=== PATIENT | female | born 1970 | race Caucasian/White ===

== ENCOUNTER 2019-08-28 07:34 | Emergency (ER) | payer OTHER ==
[~2019-08-28] VITALS: Ht 160 cm; Wt 40.0 kg
[2019-08-28 08:30] LABS: Hematocrit 42.5 % (33.0-51.0); Hemoglobin 12.6 g/dL (11.5-16.0); Mean Corpuscular HGB 33.3 pg (26.0-34.0); Mean Corpuscular HGB Conc 29.6 g/dL (31.5-36.5); Mean Corpuscular Volume 112 fL (80-100); Mean Platelet Volume 12.6 fL (9.1-12.4); NRBC ABSOLUTE 0.05 K/mm3 (0.00-0.02); NRBC Auto 0.3 /100 WBC (0.0-0.2); Platelet Count 196 K/mm3 (150-400); RDW Coefficient Variation 13.8 % (11.7-14.2); RDW Standard Deviation 57.8 fL (35.1-46.3); Red Blood Cell Count 3.78 M/mm3 (3.80-5.20); White Blood Cell Count 16.35 K/mm3 (4.00-11.30)
[2019-08-28 08:45] LABS: Alanine Aminotransfer (ALT/SGP 129 U/L (12-78); Albumin, Blood 1.9 g/dL (3.4-5.0); Albumin/Globulin Ratio 0.7 (0.8-1.8); Alk Phos 51 U/L (50-136); Anion Gap 17 mmol/L (6-16); Aspartate Aminotrans (AST/SGOT 114 U/L (12-37); Beta HCG, Quantitative, Serum 141 mIU/mL (0-3); Bilirubin, Total 0.2 mg/dL (0.1-1.0); Blood Urea Nitrogen 13 mg/dL (8-24); Bun/Creatinine Ratio 15.5 (12.0-20.0); CO2, Blood 13 mmol/L (21-32); Calcium, Blood 7.5 mg/dL (8.5-10.1); Chloride, Blood 113 mmol/L (98-108); Creatinine, Blood 0.84 mg/dL (0.40-1.00); Ethanol (Alcohol), Blood, Med <3 mg/dL; Globulin, Blood 2.8 g/dL (2.2-4.0); Glomerular Filtration Rate >60 (60-); Glucose, Blood 403 mg/dL (70-99); Potassium, Blood 5.3 mmol/L (3.5-5.5); Sodium, Blood 143 mmol/L (136-145); Total Protein, Blood 4.7 g/dL (6.4-8.2)
[2019-08-28 08:51] LABS: BAND PERCENT MAN 6 % (0-8); BASOPHILS PERCENT MAN 0 % (0-2); EOSINOPHILS ABSOLUTE MAN 0.65 K/mm3 (0.00-0.68); EOSINOPHILS PERCENT MAN 4 % (0-6); LYMPHOCYTES ABSOLUTE MAN 6.54 K/mm3 (0.84-5.20); LYMPHOCYTES PERCENT MAN 40 % (21-46); METAMYELOCYTE ABSOLUTE MAN 0.32 K/mm3 (0.00-0.00); METAMYELOCYTE PERCENT MAN 2 % (0-0); MONOCYTES ABSOLUTE MAN 1.47 K/mm3 (0.16-1.47); MONOCYTES PERCENT MAN 9 % (4-13); MYELOCYTE ABSOLUTE MAN 0.16 K/mm3 (0.00-0.00); MYELOCYTE PERCENT MAN 1 % (0-0); NEUTROPHILS ABSOLUTE MAN 7.19 K/mm3 (1.96-9.15); SEG NEUTROPHILS PERCENT MAN 38 % (41-73); TOTAL CELLS COUNTED 100
[2019-08-28 08:54] LABS: International Normalized Ratio 1.22; Prothrombin Time Results 12.9 Sec (9.7-11.5)
== END 2019-08-28 08:48 ==
LOC: ER 07:34 → EDBD 07:38 → ER 07:38
PROVIDERS: Emergency Medicine
DX: O99.411 Diseases of the circulatory system complicating pregnancy, first trimester (principal); I46.9 Cardiac arrest, cause unspecified
CPT/HCPCS: 31500; 31720; 80053; 83690; 84702; 85025; 85610; 92950; 92977; 93308; 94002; 96374-59; 96375; 96375-59; 96376-59; 99285-25; C1751; G0480; J0171; J1265; J2997; J7030; J7060